=== PATIENT | female | born 1990 | race Caucasian/White ===

== ENCOUNTER 2016-05-25 16:19 | Inpatient (IN) | payer MEDICAID, OTHER ==
[~2016-05-25 16:19] MED LIST: IBUP600; ORTH0.35 PO; PERC5TAB12 OR; PRENTAB62 PO; SENN1TAB11 PO
[2016-06-04] VITALS (16 sets, daily range): BP systolic 113–140; BP diastolic 44–88; PULSE 68–97; RESP 16–18; TEMP 97.8–98; O2SAT 97
[2016-06-04] MEDS: LACTATED RINGER'S 1000 ML IV SCH ×2 (04:00→16:43)
[2016-06-04] MEDS ORDERED: LACTATED RINGER'S 1000 ML INJ 1,000 ML IV SCH (13:04)
[2016-06-04] MEDS ORDERED: ceFAZolin 2 GM PREMIX 50 ML IV SCH (16:00)
[2016-06-04] MEDS ORDERED: CITRIC ACID-SODIUM CITRATE LIQ 30 ML UDC PO SCH (16:00)
[2016-06-04] MEDS ORDERED: LACTATED RINGER'S 1000 ML IV ONE (16:00)
[2016-06-04 16:05] LABS: AUTOMATED NEUTROPHIL # 6.9 TH/MM3 (1.8-7.7); BASOPHIL % 0.4 % (0.0-2.0); EOSINOPHIL % 0.4 % (0.0-4.0); HEMATOCRIT 36.5 % (35.0-46.0); HEMO FLAGS DIFF FINAL; LYMPH % 21.7 % (9.0-44.0); LYMPHOCYTE # 2.1 TH/MM3 (1.0-4.8); MEAN CELL VOLUME 81.3 FL (80.0-100.0); MEAN CORPUSCULAR HEMOGLOBIN 26.8 PG (27.0-34.0); MONO % 5.3 % (0.0-8.0); NEUT % 72.2 % (16.0-70.0); PLATELET COUNT 257 TH/MM3 (150-450); RED BLOOD COUNT 4.49 MIL/MM3 (4.00-5.30); RED CELL DISTRIBUTION WIDTH 15.5 % (11.6-17.2); WHITE BLOOD COUNT 9.5 TH/MM3 (4.0-11.0)
--- NOTE | 2016-06-04 16:15 | MH ---
cc: AZUL MCBRIDE DATE OF ADMISSION: 06/04/2016 ADMITTING DIAGNOSIS 1. at 39 weeks. 2. Previous 3. Maternal obesity. HISTORY OF PRESENT ILLNESS The patient is a 25-year-old white female, para 1-0-0-1, LMP of 09/05/2015, EDC of 06/11/2016. Her course was benign. PAST MEDICAL HISTORY 1. in 2011 for failed induction. 2. Hypertension. 3. Renal stones in 2013, required stents. MEDICATIONS Vitamins. ALLERGIES None. TRANSFUSIONS None. OB HISTORY One in 2011, a female. SOCIAL HISTORY She is . Her works at [employer]. Alcohol, tobacco and drugs are none. FAMILY HISTORY Noncontributory. PHYSICAL EXAMINATION GENERAL: A gravid, obese white female. VITAL SIGNS: Stable. Her weight is 284 pounds. HEENT: Exam is normal. CHEST: Clear. HEART: Regular rate. BREASTS: The breasts are symmetrical. ABDOMEN: Benign. Gravid. EFW of about 3700 grams. PELVIC: Cervix is closed. Cervix is ballottable. Placenta is posterior. ASSESSMENT As above. PLAN She is now admitted for repeat section. While in the office I explained the procedure, the risks, benefits and complications. The patient elected to proceed. MD BECCA Gomez/DAVIDE /12:37 PM /4:14 PM
[2016-06-04 16:24] LABS: BACTERIA, URINE OCC /hpf; BLOOD, URINE NEG (NEG); COMMENT (UR) CULTURE INDICATED; CULTURE IF INDICATED CULTURE INDICATED; GLUCOSE,URINE NEG (NEG); KETONE, URINE 150 mg/dL (NEG); MUCUS URINE FEW /lpf (OCC); NITRITE,URINE NEG (NEG); SQUAMOUS EPITHELIAL CELL URINE 2 /hpf (0-5); URINE COLOR YELLOW (YELLW/STRAW)
[2016-06-04] MEDS ORDERED: OXYTOCIN 10 UNIT/ML AMP ONE ×2 (16:34→18:10)
[2016-06-04] MEDS ORDERED: EPIDURAL-DIPHENHYDRAMINE HCL 50 MG/ML VIAL IV PUSH PRN (16:55)
[2016-06-04] MEDS ORDERED: EPIDURAL-NO SYSTEMIC NARCOTICS XX PRN (16:55)
[2016-06-04] MEDS ORDERED: EPIDURAL-NALOXONE HCL 0.4 MG/ML AMP IV PRN (16:55)
[2016-06-04] MEDS ORDERED: EPIDURAL-DO NOT ADMINISTER ANTICOAGULANTS XX PRN (16:55)
[2016-06-04] MEDS ORDERED: OXYTOCIN 30 UNITS-500ML PREMIX 500 ML IV ONE (17:15)
[2016-06-04] MEDS ORDERED: oxyCODONE/ACETAMINOPHEN 5 MG/325 MG TAB PO PRN (17:15)
[2016-06-04] MEDS ORDERED: DOCUSATE SODIUM 50 MG/SENNA 8.6 MG TAB PO PRN (17:15)
[2016-06-04] MEDS ORDERED: ONDANSETRON HCL 4 MG/2 ML VIAL IVP PRN (17:15)
[2016-06-04] MEDS ORDERED: SIMETHICONE 80 MG CHEWABLE TAB PO PRN (17:15)
[2016-06-04] MEDS ORDERED: SODIUM CHLORIDE 0.9% FLUSH 5 ML FLUSH IV PRN (17:15)
[2016-06-04] MEDS ORDERED: ZOLPIDEM TARTRATE 5 MG TAB PO PRN (17:15)
[2016-06-04] MEDS: ACETAMINOPHEN 1000 MG/100 ML VIAL IV SCH (18:00)
[2016-06-04] MEDS ORDERED: MEASLES, MUMPS, RUBELLA VACCINE 0.5 ML VIAL SQ ONE (18:00)
[2016-06-04] MEDS ORDERED: ONDANSETRON HCL 4 MG/2 ML VIAL ONE (18:10)
[2016-06-04] MEDS ORDERED: MORPHINE SULFATE PF 5 MG/10 ML VIAL ONE (18:10)
[2016-06-04] MEDS ORDERED: OXYTOCIN 30 UNITS-500ML PREMIX 500 ML IV PRN (18:15)
[2016-06-04] MEDS ORDERED: KETOROLAC TROMETHAMINE 30 MG/ML (IVP) VIAL ONE (19:53)
[2016-06-04] MEDS: KETOROLAC TROMETHAMINE 30 MG/ML (IVP) VIAL IV PUSH PRN (19:54)
[2016-06-04] MEDS: EPIDURAL-DIPHENHYDRAMINE HCL 50 MG CAP PO PRN (22:11)
[2016-06-05] VITALS (10 sets, daily range): BP systolic 111–126; BP diastolic 63–79; PULSE 70–80; RESP 15–18; TEMP 97.7–99
[2016-06-05] MEDS: ACETAMINOPHEN 1000 MG/100 ML VIAL IV SCH ×2 (02:46→09:27)
[2016-06-05 04:56] LABS: AUTOMATED NEUTROPHIL # 4.9 TH/MM3 (1.8-7.7); BASOPHIL # 0.1 TH/MM3 (0-0.2); BASOPHIL % 0.8 % (0.0-2.0); EOSINOPHIL % 0.6 % (0.0-4.0); HEMATOCRIT 29.2 % (35.0-46.0); HEMO FLAGS DIFF FINAL; LYMPH % 24.7 % (9.0-44.0); LYMPHOCYTE # 1.8 TH/MM3 (1.0-4.8); MEAN CELL VOLUME 80.6 FL (80.0-100.0); MEAN CORPUSCULAR HEMOGLOBIN 27.1 PG (27.0-34.0); MEAN CORPUSCULAR HGB CONC 33.6 % (32.0-36.0); MONO % 7.1 % (0.0-8.0); NEUT % 66.8 % (16.0-70.0); PLATELET COUNT 169 TH/MM3 (150-450); RED BLOOD COUNT 3.63 MIL/MM3 (4.00-5.30); WHITE BLOOD COUNT 7.4 TH/MM3 (4.0-11.0)
[2016-06-05 05:08] LABS: BICARBONATE 22.8 MEQ/L (21.0-32.0)
[2016-06-05] MEDS: EPIDURAL-DIPHENHYDRAMINE HCL 50 MG CAP PO PRN (06:24)
[2016-06-05] MEDS: IBUPROFEN 600 MG TAB PO PRN ×3 (06:25→23:57)
[2016-06-05] MEDS: SODIUM CHLORIDE 0.9% FLUSH 5 ML FLUSH IV SCH ×2 (09:27→21:00)
[2016-06-05] MEDS: KETOROLAC TROMETHAMINE 30 MG/ML (IVP) VIAL IV PUSH PRN (12:28)
[2016-06-05] MEDS: oxyCODONE/ACETAMINOPHEN 5 MG/325 MG TAB PO PRN ×2 (17:58→23:56)
[2016-06-06] MEDS: LACTATED RINGER'S 1000 ML IV SCH (01:20)
[2016-06-06] MEDS: oxyCODONE/ACETAMINOPHEN 5 MG/325 MG TAB PO PRN ×2 (05:58→13:08)
[2016-06-06] MEDS: IBUPROFEN 600 MG TAB PO PRN ×2 (05:58→13:07)
[2016-06-06 08:05] VITALS: BP 117/81; PULSE 71; RESP 18; TEMP 98.1
[2016-06-06] MEDS ORDERED: DIPHTH/TETANUS/ACEL PERTUSSIS (BOOSTER) 0.5 ML VIAL/PFS IM ONE (09:00)
[2016-06-06 09:55] VITALS: BP 124/78; PULSE 95
[2016-06-06] MEDS ORDERED: OXYC1TAB63 PO (10:21)
--- NOTE | 2016-06-06 10:22 | HHI.DCPOC ---
Discharge Care Plan Report Symptoms to Your Doctor -Temperate above 100.5 degrees -Redness, of incision or excessive or foul smelling drainage -Unusual pain or calf pain -Increased vaginal bleeding -Painful or difficulty urinating -Feelings of extreme sadness or anxiety after 2 weeks Goals to Promote Your Health * To prevent worsening of your condition and complications * To maintain your health at the optimal level Directions to Meet Your Goals Take your medications as prescribed Follow your dietary instruction Follow activity as directed Ensure plenty of rest for recovery Drink fluids for hydration Keep your appointments as scheduled Take your immunizations and boosters as scheduled If your symptoms worsen call your PCP, if no PCP go to Urgent Care Center or Emergency Room Smoking is Dangerous to Your Health. Avoid second hand smoke Call the 24-hour crisis hotline for domestic abuse at Ramana Zaragoza MD Jun 06, 2016 10:22
--- NOTE | 2016-06-07 15:04 | MP ---
cc: REEDAZUL DATE OF SURGERY: 06/04/2016 PREOPERATIVE DIAGNOSIS 1. Term . 2. Previous . 3. Maternal obesity. POSTOPERATIVE DIAGNOSIS 1. Term . 2. Previous . 3. Maternal obesity. 4. Delivered. PROCEDURE Repeat low transverse section. ANESTHESIA Spinal. SURGEON Azul Zaragoza MD CLIENT HR MANAGER Alba Cruz. ESTIMATED BLOOD LOSS About 800 ccs. FLUIDS 2 liters of crystalloid. OBJECTIVE FINDINGS Following the induction of adequate spinal anesthesia the patient was prepped and draped supine on the operating table in the left lateral tilt position in sterile fashion with the bladder being drained via Jacinto catheterization. The abdomen was opened through a Pfannenstiel incision using a knife to excise her old scar. The fascia was opened transversely, stripped from the muscles. Rectus muscle split in the midline. Peritoneum opened sharply without incident. The bladder flap was taken down sharply, retracted with a Tomball blade. The lower uterine segment was incised transversely with the knife, extended with blunt dissection with findings of clear fluid, LOT position. The baby was delivered with the bull chain operator guidance and fundal pressure. The mouth was suctioned, cord clamped and cut and the baby was passed to the awaiting team, viable, vigorous male, Apgars 8 and 9. weight 8 pounds 4 ounces. Mouth was suctioned, cord clamped and cut and the baby passed to the awaiting team. Cord blood was sent for typing, the placenta for donation and uterine cavity cleaned with laps. The uterus was exteriorized and closed in two layers with running suture, first with a running locking stitch of 0-Vicryl, second with a running imbricating stitch of 0-Vicryl. Posterior inspection, uterus, tubes and ovaries were normal. The uterus was now placed in the peritoneal cavity. Irrigation was performed. No bleeding was evident. The bladder flap was closed with running stitch of 3-0 Vicryl. All laps and retractors were removed. Counts were correct. The anterior peritoneum was closed with running stitch of 2-0 Vicryl. Fascia was closed with running stitch of #1 PDS. The subcu was closed with running 0 Vicryl and skin with running subcuticular 3-0 Monocryl. Dermabond was applied. All counts were correct and the patient was awakened and taken to the recovery room in good condition. MD BECCA Gomez/JONATHAN /6:05 PM /2:45 PM
--- NOTE | 2016-06-11 05:40 | MD ---
cc: AZUL MCBRIDE ADMISSION DATE: 06/04/2016 DISCHARGE DATE: 06/06/2016 ADMISSION DIAGNOSES 1. Term 2. Previous 3. Maternal obesity. DISCHARGE DIAGNOSES 1. Term 2. Previous 3. Maternal obesity. 4. Delivered. HISTORY OF PRESENT ILLNESS The patient is a 25-year-old white female para 1-0-0-1, LMP of 09/05/2015, EDC of 06/11/2016. Her course was benign except for maternal obesity. She had a previous for failure to progress and distress. Her labs included - Rh positive, VDRL nonreactive, rubella immune, rubeola immune, HAA negative, Pap negative. Glucose screen was normal. Strep culture was positive. HOSPITAL COURSE She was admitted for repeat section on 06/04/2016, had delivery of a viable, vigorous male, Apgars were 8 and 9, weight 8 pounds 4 ounces. The baby is named Emily and she was breast feeding. did well, was discharged home in excellent condition on 06/06/2016. Her pre and postop labs were normal. She was advised NPV, light activity, no driving, return to see me in one week. She was carefully instructed in wound and circumcision care. She was given prescription for Percocet 5, 1-2 p.o. q.4 hours p.r.n. pain, #60. MD BECCA Gomez/SSB /10:26 AM /5:34 AM
== END 2016-06-06 14:15 | disposition home or self-care (01) | DRG 766 ==
LOC: H2EB 06-04 15:32 → H1EA 06-04 20:28
PROVIDERS: ADMIT Obstetrics & Gynecology; ATTEND Obstetrics & Gynecology
PROC: 10D00Z1 Extraction of Products of Conception, Low, Open Approach (ICD-10-PCS; principal; 2016-06-04)
DX: O34.211 Maternal care for low transverse scar from previous cesarean delivery (principal); O99.214 Obesity complicating childbirth; O99.824 Streptococcus B carrier state complicating childbirth; Z37.0 Single live birth; Z3A.39 39 weeks gestation of pregnancy
CPT/HCPCS: 59025; 80048; 81001; 85025; 86850; 86900; 86901; 87086; 90715; J0131; J0690; J1885; J2274; J2405; J2590; J7120; Q0163

== ENCOUNTER → 2017-06-10 | Outpatient (CLI) | payer BC ==
[~2017-06-10] MED LIST changes: -ORTH0.35 PO; +OXYC1TAB63 PO
== END ==
LOC: CDED 09:58
PROVIDERS: ATTEND Obstetrics & Gynecology
DX: O24.419 Gestational diabetes mellitus in pregnancy, unspecified control (principal)
CPT/HCPCS: 97802

== ENCOUNTER 2017-07-30 08:16 | Inpatient (IN) | payer BC ==
[2017-07-30] VITALS (9 sets, daily range): BP systolic 87–109; BP diastolic 50–68; PULSE 68–83; RESP 16–18; TEMP 97.3–98.1; O2SAT 99–100
[~2017-07-30] VITALS: Ht 172.7 cm; Wt 127.0 kg
[2017-07-30] MEDS ORDERED: ceFAZolin 2 GM PREMIX 50 ML IV SCH (09:00)
[2017-07-30] MEDS ORDERED: CITRIC ACID-SODIUM CITRATE LIQ 30 ML UDC PO SCH (09:00)
[2017-07-30] MEDS ORDERED: LACTATED RINGER'S 1000 ML IV SCH (09:00)
[2017-07-30] MEDS ORDERED: LACTATED RINGER'S 1000 ML IV ONE (09:00)
[2017-07-30 09:07] LABS: AUTOMATED NEUTROPHIL # 5.4 TH/MM3 (1.8-7.7); BASOPHIL % 0.5 % (0.0-2.0); EOSINOPHIL % 0.6 % (0.0-4.0); HEMATOCRIT 32.2 % (35.0-46.0); HEMOGLOBIN 10.5 GM/DL (11.6-15.3); LYMPH % 25.3 % (9.0-44.0); LYMPHOCYTE # 2.1 TH/MM3 (1.0-4.8); MEAN CELL VOLUME 77.3 FL (80.0-100.0); MEAN CORPUSCULAR HEMOGLOBIN 25.2 PG (27.0-34.0); MEAN CORPUSCULAR HGB CONC 32.7 % (32.0-36.0); MEAN PLATELET VOLUME 9.1 FL (7.0-11.0); MONO % 6.8 % (0.0-8.0); MONOCYTE # 0.6 TH/MM3 (0-0.9); NEUT % 66.8 % (16.0-70.0); PLATELET COUNT 257 TH/MM3 (150-450); RED BLOOD COUNT 4.16 MIL/MM3 (4.00-5.30); RED CELL DISTRIBUTION WIDTH 15.6 % (11.6-17.2); WHITE BLOOD COUNT 8.1 TH/MM3 (4.0-11.0)
[2017-07-30 09:21] LABS: BACTERIA, URINE RARE /hpf; BILIRUBIN, URINE NEG (NEG); BLOOD, URINE TRACE (NEG); GLUCOSE,URINE NEG (NEG); KETONE, URINE 10 mg/dL (NEG); MUCUS URINE MOD /lpf (OCC); NITRITE,URINE NEG (NEG); PH, URINE 6.5 (5.0-8.5); SQUAMOUS EPITHELIAL CELL URINE 6 /hpf (0-5); URINE COLOR YELLOW (YELLW/STRAW); URINE LEUKOCYTE ESTERASE LARGE (NEG)
[2017-07-30] MEDS ORDERED: MORPHINE SULFATE PF 5 MG/10 ML VIAL ONE (09:56)
[2017-07-30] MEDS ORDERED: ACETAMINOPHEN 1000 MG/100 ML 100 ML IV ONE (09:57)
[2017-07-30] MEDS ORDERED: ACETAMINOPHEN 1000 MG/100 ML VIAL IV SCH (10:00)
[2017-07-30] MEDS ORDERED: ZOLPIDEM TARTRATE 5 MG TAB PO PRN (10:00)
[2017-07-30] MEDS ORDERED: DOCUSATE SODIUM 50 MG/SENNA 8.6 MG TAB PO PRN (10:00)
[2017-07-30] MEDS ORDERED: OXYTOCIN 30 UNITS-500ML PREMIX 500 ML IV ONE (10:00)
[2017-07-30] MEDS ORDERED: ACETAMINOPHEN 1000 MG/100 ML 100 ML IV SCH (10:00)
[2017-07-30] MEDS ORDERED: MEASLES, MUMPS, RUBELLA VACCINE 0.5 ML VIAL SQ ONE (10:00)
[2017-07-30] MEDS ORDERED: ONDANSETRON HCL 4 MG/2 ML VIAL IVP PRN (10:00)
[2017-07-30] MEDS ORDERED: KETOROLAC TROMETHAMINE 30 MG/ML (IVP) VIAL IV PUSH PRN (10:00)
[2017-07-30] MEDS ORDERED: KETOROLAC TROMETHAMINE 60 MG/2 ML (IM) VIAL IM PRN (10:00)
[2017-07-30] MEDS ORDERED: LIDOCAINE HCL 1% PF 5 ML SYRINGE OTHER ONE (12:00)
[2017-07-30] MEDS ORDERED: PHENYLEPH/NS 1000 MCG/10 ML SYR IV ONE (12:00)
[2017-07-30] MEDS ORDERED: ceFAZolin INJ 1,000 MG VIAL IV ONE (12:00)
[2017-07-30] MEDS ORDERED: DEXAMETHASONE SOD PHOS 4 MG/ML VIAL IV ONE (12:00)
[2017-07-30] MEDS ORDERED: KETOROLAC TROMETHAMINE 30 MG/ML (IVP) VIAL IV PUSH ONE (12:00)
[2017-07-30] MEDS ORDERED: OXYTOCIN 10 UNIT/ML AMP IV ONE (12:00)
[2017-07-30] MEDS ORDERED: ONDANSETRON HCL 4 MG/2 ML VIAL IV ONE (12:00)
[2017-07-30] MEDS ORDERED: PHENYLEPHRINE HCL 10 MG/ML VIAL ONE (12:06)
[2017-07-30] MEDS ORDERED: EPIDURAL-DIPHENHYDRAMINE HCL 50 MG CAP PO PRN (13:00)
[2017-07-30] MEDS ORDERED: EPIDURAL-NO SYSTEMIC NARCOTICS PRN (13:00)
[2017-07-30] MEDS ORDERED: EPIDURAL-NALOXONE HCL 0.4 MG/ML AMP IV PUSH PRN (13:00)
[2017-07-30] MEDS ORDERED: EPIDURAL-DIPHENHYDRAMINE HCL 50 MG/ML VIAL IV PUSH PRN (13:00)
[2017-07-30] MEDS ORDERED: EPIDURAL-DO NOT ADMINISTER ANTICOAGULANTS PRN (13:00)
[2017-07-30] MEDS ORDERED: LACTATED RINGER'S 1000 ML INJ 1,000 ML IV SCH (13:04)
[2017-07-30] MEDS: ACETAMINOPHEN 1000 MG/100 ML 100 ML IV SCH (17:16)
[2017-07-30] MEDS ORDERED: OXYTOCIN 30 UNITS-500ML PREMIX 500 ML IV PRN (18:15)
[2017-07-31] VITALS: BP 91/52; PULSE 68; RESP 18; TEMP 98.1
[2017-07-31] MEDS: ACETAMINOPHEN 1000 MG/100 ML 100 ML IV SCH ×2 (01:50→10:59)
[2017-07-31 04:00] VITALS: BP 96/55; PULSE 91; RESP 18; TEMP 97.8
[2017-07-31 04:52] LABS: AUTOMATED NEUTROPHIL # 5.8 TH/MM3 (1.8-7.7); BASOPHIL % 0.3 % (0.0-2.0); EOSINOPHIL % 0.4 % (0.0-4.0); HEMOGLOBIN 8.8 GM/DL (11.6-15.3); LYMPHOCYTE # 2.1 TH/MM3 (1.0-4.8); MEAN CELL VOLUME 78.2 FL (80.0-100.0); MEAN CORPUSCULAR HEMOGLOBIN 25.4 PG (27.0-34.0); MEAN CORPUSCULAR HGB CONC 32.5 % (32.0-36.0); MEAN PLATELET VOLUME 8.6 FL (7.0-11.0); MONO % 6.6 % (0.0-8.0); MONOCYTE # 0.6 TH/MM3 (0-0.9); NEUT % 67.7 % (16.0-70.0); PLATELET COUNT 177 TH/MM3 (150-450); RED BLOOD COUNT 3.45 MIL/MM3 (4.00-5.30); RED CELL DISTRIBUTION WIDTH 15.2 % (11.6-17.2); WHITE BLOOD COUNT 8.5 TH/MM3 (4.0-11.0)
[2017-07-31 05:25] LABS: BICARBONATE 23.4 MEQ/L (21.0-32.0); CALCIUM 8.4 MG/DL (8.5-10.1); CREATININE 0.53 MG/DL (0.50-1.00)
[2017-07-31 08:29] VITALS: BP 122/68; PULSE 91; RESP 18; TEMP 97.7
[2017-07-31] MEDS: IBUPROFEN 600 MG TAB PO PRN ×2 (12:32→18:20)
[2017-07-31] MEDS: SIMETHICONE 80 MG CHEWABLE TAB PO PRN ×2 (12:32→22:24)
[2017-07-31] MEDS: oxyCODONE/ACETAMINOPHEN 5 MG/325 MG TAB PO PRN ×2 (16:28→20:33)
[2017-07-31 19:05] VITALS: BP 120/75; PULSE 77; RESP 16; TEMP 98
[2017-08-01] MEDS: IBUPROFEN 600 MG TAB PO PRN ×4 (00:26→18:05)
[2017-08-01] MEDS: oxyCODONE/ACETAMINOPHEN 5 MG/325 MG TAB PO PRN ×4 (00:26→14:41)
[2017-08-01 07:46] VITALS: BP 119/75; PULSE 76; RESP 16
[2017-08-01] MEDS: SIMETHICONE 80 MG CHEWABLE TAB PO PRN ×2 (07:58→18:05)
--- NOTE | 2017-08-01 08:03 | HHI.DCPOC ---
Discharge Care Plan Report Symptoms to Your Doctor -Temperature above 100.5 degrees -Redness, of incision or excessive or foul smelling drainage -Unusual pain or calf pain -Increased vaginal bleeding -Painful or difficulty urinating -Feelings of extreme sadness or anxiety after 2 weeks Goals to Promote Your Health * To prevent worsening of your condition and complications * To maintain your health at the optimal level Directions to Meet Your Goals Take your medications as prescribed Follow your dietary instruction Follow activity as directed Ensure plenty of rest for recovery Drink fluids for hydration Keep your appointments as scheduled Take your immunizations and boosters as scheduled If your symptoms worsen call your PCP, if no PCP go to Urgent Care Center or Emergency Room Smoking is Dangerous to Your Health. Avoid second hand smoke Call the 24-hour crisis hotline for domestic abuse at Ramana Zaragoza MD Aug 01, 2017 08:03
[2017-08-01] MEDS ORDERED: OXYC1TAB63 PO (08:04)
--- NOTE | 2017-08-01 08:12 | MH ---
cc: Ramana Zaragoza MD DATE OF ADMISSION: 07/30/2017 ADMITTING DIAGNOSES: 1. Term . 2. Previous section x2. 3. Morbid obesity. 4. Gestational diabetes. HISTORY OF PRESENT ILLNESS: The patient is a 26-year-old white female, para 2-0-0-2, LMP of 11/08/2016, EDC of 08/05/2017. Her course has been benign. Her first 2 deliveries were by . She developed gestational diabetes this , well controlled with diet and metformin. She is now admitted for repeat section. PAST SURGICAL HISTORY: In 2013, she required stents for renal stones. She had a in 2011 and in 2016. MEDICATIONS: Vitamins and metformin 500 mg p.o. b.i.d. ALLERGIES: NONE. TRANSFUSIONS: None. 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 Alcohol, tobacco and drugs are none. FAMILY HISTORY: Noncontributory. REVIEW OF SYSTEMS: Negative. ALCOHOL, TOBACCO AND DRUGS: Negative. PHYSICAL EXAMINATION: She is 5 feet 8 inches in height. Her weight is 280 pounds. HEENT: Normal. CHEST: Clear. HEART: Regular rate. BREASTS: Symmetrical. ABDOMEN: Gravid, EFW of 4000 grams. The placenta is posterior. Cervix is closed. EXTREMITIES: Normal. ASSESSMENT: As above. She is now admitted for a repeat section. While in the office, I explained the procedures, the risks and benefits and complications. The patient elects to proceed. MD BECCA Gomez/GAYATHRI , 06:38 PM , 07:05 PM TRISTIN
--- NOTE | 2017-08-01 08:33 | MD ---
cc: Ramana Zaragoza MD DATE OF DISCHARGE: 08/01/2017 ADMITTING DIAGNOSIS: 1. Term . 2. Gestational diabetes. 3. Previous section x 2. 4. Morbid obesity. DISCHARGE DIAGNOSIS: 1. Term . 2. Gestational diabetes. 3. Previous section x 2. 4. Morbid obesity. 5. Delivered. HISTORY OF PRESENT ILLNESS: The patient is a 26-year-old white female, para 2-0-0-2, LMP of 10/29/2016, EDC of 08/05/2017. Her course was benign. She had gestational diabetes, well controlled with diet and metformin therapy. Her first two deliveries were by . She was admitted for repeat section on 07/30/2017. Had a viable vigorous male. Post- did well. She was discharged home in excellent condition on 08/01/2017. She was advised NPV, light activity, no driving, return to see me in 1 week. She was carefully instructed on wound and instructed on care, take vitamins daily. Was given script for Percocet 5 one to two p.o. every 4 hours p.r.n. pain, #60. Ramana Zaragoza MD JAW/TL , 08:15 AM , 08:32 AM
[2017-08-01] MEDS ORDERED: DIPHTH/TETANUS/ACEL PERTUSSIS (BOOSTER) 0.5 ML VIAL/PFS IM ONE (09:00)
--- NOTE | 2017-08-01 14:46 | MP ---
cc: Ramana Zaragoza MD DATE OF OPERATION: 07/30/2017 PREOPERATIVE DIAGNOSES: 1. Term . 2. Gestational diabetes. 3. Previous section x 2. 4. Maternal obesity. POSTOPERATIVE DIAGNOSES: 1. Term . 2. Gestational diabetes. 3. Previous x 2. 4. Maternal obesity. 5. Delivered. PROCEDURE: Repeat section. ANESTHESIA: Spinal. SURGEON: Ramana Zaragoza MD [employer] HEAD: CHANDLER Isaac ESTIMATED BLOOD LOSS: 600 mL FLUIDS: Crystalloid. OBJECTIVE FINDINGS: Following induction of adequate spinal anesthesia, the patient was prepped and draped supine on the operating table, left lateral tilt position, sterile fashion, with the bladder being drained by Jacinto catheterization. Pfannenstiel incision using a knife to excise her old scar. Fascia opened transversely, stripped from the muscles, rectus muscle divided in the midline and the peritoneum opened sharply without incident. The bladder flap was taken down sharply, retracted inferiorly with Shaggy blade. The lower uterine segment was incised transversely with a knife and extended with blunt dissection. There was clear fluid. Baby was LOT position. The vacuum applied to occiput and used to lift the head through the abdominal wound. Mouth was suctioned, cord clamped and cut, baby passed to awaiting oskar team. Viable vigorous male, Apgars 8 and 9, 8 pounds 6 ounces. Cord blood sent for typing, blood sent for donation and the uterine cavity cleaned with laps. Uterus exteriorized and closed in 2 layers with running suture, first a running locking stitch of Vicryl, second running imbricating stitch of Vicryl. Posterior inspection was normal, tubes, ovaries, The uterus placed in abdominal cavity. Irrigation performed. No bleeding was evident. The bladder flap was closed with a running stitch of 3-0 Vicryl. All instruments removed. Counts were correct. The anterior peritoneum closed with running 2-0 Vicryl, the fascia with a running stitch of #1 PDS midline, corners to midline tied, subcutaneous with running 3-0 Vicryl, the skin with running stitch of 3-0 Monocryl. Dermabond applied. All counts were correct. The patient was awakened and taken to the recovery room in stable condition. MD BECCA Gomez/JA , 01:57 PM , 02:45 PM MTDLeon
== END 2017-08-01 20:40 | disposition home or self-care (01) | DRG 765 ==
LOC: H2EB 08:16 → H1EA 12:38
PROVIDERS: ADMIT Obstetrics & Gynecology; ATTEND Obstetrics & Gynecology
PROC: 10D00Z1 Extraction of Products of Conception, Low, Open Approach (ICD-10-PCS; principal; 2017-07-30)
DX: O34.219 Maternal care for unspecified type scar from previous cesarean delivery (principal); Z68.41 Body mass index [BMI] 40.0-44.9, adult; O24.429 Gestational diabetes mellitus in childbirth, unspecified control; O99.214 Obesity complicating childbirth; Z37.0 Single live birth; Z23 Encounter for immunization; Z3A.40 40 weeks gestation of pregnancy
CPT/HCPCS: 59025; 80048; 80307; 81001; 85025; 86850; 86900; 86901; 87086; 87491; 87591; 90715; J0131; J0690; J1100; J1200; J1885; J2274; J2370; J2405; J2590; J7120